=== PATIENT | male | born 1970 | race Caucasian/White ===

== ENCOUNTER 2017-08-25 08:36 | Emergency (ER) | payer BC ==
[2017-08-25] MEDS ORDERED: diphenhydrAMINE 50 MG/ML VIAL ONE (09:23)
[2017-08-25] MEDS ORDERED: Metoclopramide HCl 10 MG/2 ML VIAL ONE (09:23)
[2017-08-25 09:40] LABS: ALT (SGPT) 34 U/L (8-55); AST (SGOT) 22 U/L (5-34); Albumin 4.7 g/dL (3.5-5.0); Alkaline Phosphatase 69 U/L (40-150); Anion Gap 14 mmol/L (10-20); BUN (Urea Nitrogen) 18 mg/dL (8.9-20.6); Bilirubin, Total 0.5 mg/dL (0.2-1.2); Calc. Creatinine Clearance 0 mL/min (70-130); Calcium 9.5 mg/dL (7.8-10.44); Carbon Dioxide 21 mmol/L (22-29); Chloride 108 mmol/L (98-107); Estimated GFR-MDRD 76; Globulin 3.2 g/dL (2.4-3.5); Glucose 129 mg/dL (70-105); Lipase 16 U/L (8-78); Potassium 4.2 mmol/L (3.5-5.1); Protein, Total 7.9 g/dL (6.0-8.3); Sodium 139 mmol/L (136-145)
--- NOTE | 2017-08-25 09:40 | RAD ---
PORTABLE AP CHEST RADIOGRAPH: Date: 08-25-17 History: Chest pain. Comparison: 10-25-16 FINDINGS: The cardiac silhouette and pulmonary vasculature are within normal limits. The lungs remain clear. Th ere has been no interval change when compared to the prior study. IMPRESSION: No acute cardiopulmonary process. POS: [facility]
[2017-08-25 09:42] LABS: CKMB 1.3 ng/mL (0-6.6)
[2017-08-25 09:48] LABS: #Basophils 0.1 thou/uL (0.0-0.2); #Eosinphils 0.1 thou/uL (0.0-0.7); #Monocytes 0.3 thou/uL (0.11-0.59); #Neutrophils 4.7 thou/uL (1.40-6.50); %Basophils 1.7 % (0.0-1.0); %Eosinophils 1.1 % (0.0-10.0); %Lymphocytes 15.8 % (21.0-51.0); %Monocytes 4.2 % (0.0-10.0); %Neutrophils 77.3 % (42.0-75.0); Mean Corpuscular HGB CONC 35.5 g/dL (32.0-36.0); Mean Corpuscular Hemoglobin 29.2 pg (27.0-31.0); Mean Corpuscular Volume 82.2 fl (80.0-94.0); Mean Platelet Volume 8.2 fL (7.4-10.4); Platelet Count 219 thou/uL (130-400); RBC Distribution Width 12.5 % (11.5-14.5); Red Blood Cell (RBC) Count 5.83 mill/uL (4.70-6.10); White Blood Cell (WBC) Count 6.1 thou/uL (4.8-10.8)
== END 2017-08-25 10:15 | disposition home or self-care (01) ==
LOC: SCSER 08:36
DX: R07.2 Precordial pain (principal); R51 Headache; E78.5 Hyperlipidemia, unspecified; I10 Essential (primary) hypertension; Z87.891 Personal history of nicotine dependence; Z79.899 Other long term (current) drug therapy
CPT/HCPCS: 71045; 80053; 82553; 83690; 84484; 85025; 93005; 96365; 96375; J1200; J2765

== ENCOUNTER 2018-01-06 19:22 | Inpatient (IN) | payer BC, SELFPAY ==
[2018-01-06 20:17] LABS: ALT (SGPT) 31 U/L (8-55); AST (SGOT) 23 U/L (5-34); Albumin 4.8 g/dL (3.5-5.0); Alkaline Phosphatase 76 U/L (40-150); Anion Gap 18 mmol/L (10-20); BUN (Urea Nitrogen) 37 mg/dL (8.9-20.6); Bilirubin, Total 1.2 mg/dL (0.2-1.2); CK (CPK) 114 U/L (30-200); Calc. Creatinine Clearance 0 mL/min (70-130); Calcium 9.7 mg/dL (7.8-10.44); Carbon Dioxide 17 mmol/L (22-29); Chloride 104 mmol/L (98-107); Estimated GFR-MDRD 25; Glucose 95 mg/dL (70-105); Potassium 3.9 mmol/L (3.5-5.1); Protein, Total 7.8 g/dL (6.0-8.3); Sodium 135 mmol/L (136-145)
[2018-01-06 20:21] LABS: CKMB 1.1 ng/mL (0-6.6); Troponin I Less than 0.010 ng/mL (< 0.028)
--- NOTE | 2018-01-06 20:27 | RAD ---
CHEST ONE VIEW 01/06/18 HISTORY: Chest pressure and pain. COMPARISON: 08/25/17. FINDINGS: Normal cardiac silhouette. Pulmonary vessels and hilum are normal. Costophrenic angles are clear. No mass. No consolidation. No pneumothorax or osseous abnormalities. IMPRESSION: No acute cardiopulmonary process. POS: [facility]
[2018-01-06 21:04] LABS: Bilirubin Small (Negative); Blood, Urine Negative (Negative); Glucose, Urine (Dipstick) Negative (Negative); Leukocyte Negative (Negative); Nitrite Negative (Negative); Protein, Urine (Dipstick) 30 mg/dL (Neg-Trace); Specific Gravity, Urine 1.025 (1.005-1.030); Urobilinogen 0.2 mg/dL (0.2-1.0); pH, Urine 5.5 (5.0-9.0)
[2018-01-06 21:05] LABS: Clarity Hazy (Clear)
[2018-01-06 21:13] LABS: Bacteria/HPF 1+ HPF (None Seen); Hyaline Casts/LPF 0-3 HYALINE CAST LPF (0-3 Hyaline); RBC/HPF None Seen HPF (0-3); Squamous Epithelial 0-3 HPF (0-3); WBC/HPF None Seen HPF (0-3)
[2018-01-06 22:33] LABS: Osmolality, Urine 385 mOsm/kg (300-900)
[2018-01-06 22:43] LABS: Sodium, Urine 22 mmol/L (Not Available)
[2018-01-06] MEDS ORDERED: Sodium Chloride 0.9% 1,000 ML IV SCH (22:53)
[2018-01-06 22:57] VITALS: BMI 32.5
[2018-01-06 23:40] LABS: Troponin I Less than 0.010 ng/mL (< 0.028)
[2018-01-07] MEDS ORDERED: ALPRAZolam 0.5 MG TAB PO PRN (00:41)
[2018-01-07] MEDS ORDERED: Ondansetron ODT 4 MG TAB PO PRN (00:43)
[2018-01-07] MEDS ORDERED: Acetaminophen 325 MG TAB PO PRN (00:43)
[2018-01-07] MEDS: Sodium Chloride 0.9% 1,000 ML IV SCH ×3 (00:52→21:44)
[2018-01-07 02:14] LABS: #Eosinphils 0.2 thou/uL (0.0-0.7); #Lymphocytes 1.5 thou/uL (1.20-3.40); #Monocytes 0.8 thou/uL (0.11-0.59); #Neutrophils 3.9 thou/uL (1.40-6.50); %Basophils 0.4 % (0.0-1.0); %Eosinophils 2.4 % (0.0-10.0); %Lymphocytes 23.1 % (21.0-51.0); %Monocytes 12.2 % (0.0-10.0); Mean Corpuscular HGB CONC 36.5 g/dL (32.0-36.0); Mean Corpuscular Hemoglobin 31.9 pg (27.0-31.0); Mean Corpuscular Volume 87.2 fL (78.0-98.0); Mean Platelet Volume 8.5 fL (7.4-10.4); Platelet Count 177 thou/uL (130-400); RBC Distribution Width 13.2 % (11.5-14.5); Red Blood Cell (RBC) Count 4.38 mill/uL (4.70-6.10); White Blood Cell (WBC) Count 6.3 thou/uL (4.8-10.8)
[2018-01-07 02:31] LABS: Troponin I Less than 0.010 ng/mL (< 0.028)
[2018-01-07 02:33] LABS: Anion Gap 15 mmol/L (10-20); BUN (Urea Nitrogen) 36 mg/dL (8.9-20.6); BUN/Creatinine Ratio 16.51; Calc. Creatinine Clearance 59 mL/min (70-130); Calcium 8.9 mg/dL (7.8-10.44); Carbon Dioxide 17 mmol/L (22-29); Chloride 106 mmol/L (98-107); Estimated GFR-MDRD 33; Glucose 92 mg/dL (70-105); Phosphorus 4.7 mg/dL (2.3-4.7); Potassium 3.2 mmol/L (3.5-5.1); Sodium 135 mmol/L (136-145)
[2018-01-07] MEDS ORDERED: Nitroglycerin 2% Ointment 1 INCH/1 GM Packet TOP PRN (04:55)
--- NOTE | 2018-01-07 06:25 | HP ---
CHIEF COMPLAINT: Chest pain. HISTORY OF PRESENT ILLNESS: This is a 47-year-old male with past medical history of cardiac catheter ization, hyperlipidemia, hypertension, presenting with chest pain which started since Wednesday, 2017. Per patient, his chest pain started substernal in nature, did not radiate to the back; however , patient stated that the pain is localized across the chest and it was 6/10 on the pain scale. Aisha ent states that during the time when he had chest pain, he was also having some mild shortness of eunice ath. Patient was also having increased diaphoresis. Patient states that he has history of anxiety, therefore, he thought it was probably due to anxiety; however, the chest pain has been ongoing for th e past 2 days and patient taking his anxiety medication is not helping. The patient states that work ing or exertion makes the chest pain worse. Of note, patient states that the past couple of weeks, h e had diarrhea and abdominal pain, vomiting. Patient stated that he was very dehydrated during that time and he is wondering if that could also be a contributing factor to him having these symptoms of chest pain. At this point, patient denies hemoptysis, recent travel history, any sick contact. The patient denies fever, nausea, vomiting, diarrhea, abdominal pain, constipation, or hematuria. REVIEW OF SYSTEMS: Positive for chest pain and shortness of breath, otherwise as documented in the H PI. All other systems are reviewed and are negative. PAST MEDICAL HISTORY: Hyperlipidemia; hypertension; coronary artery disease, status post cardiac cat heterization. FAMILY HISTORY: Reviewed and noncontributory. PAST SURGICAL HISTORY: Tonsillectomy, colonoscopy, cardiac stents. PSYCHIATRIC HISTORY: Anxiety. SOCIAL HISTORY: Patient is a former tobacco smoker. The patient states that he quit about 8 years a go. The patient denies any alcohol use or illicit drug abuse. ALLERGIES: IODINE. CURRENT MEDICATIONS: The patient is on losartan 100 mg, metoprolol tartrate 25 mg. PHYSICAL EXAMINATION: VITAL SIGNS: Blood pressure is 101/69, pulse of 71, respiratory rate of 20, temperature of 98.3, oxy gen saturation of 98 on room air. GENERAL: The patient is alert, oriented x3, not in acute distress. Patient is able to speak in full sentences. HEENT: Normocephalic, atraumatic. Pupils are equal, round, and reactive to light. Extraocular move ments are intact. No scleral icterus. NECK: Trachea is midline. No JVD. Neck is supple. LUNGS: Clear to auscultation bilaterally. No wheezing, no rales, no rhonchi appreciated. No chest wall tenderness. CARDIOVASCULAR: Positive S1, S2. Regular rate and rhythm. No murmurs, no gallops, no rubs apprecia kobe. ABDOMEN: Obese. Abdomen is soft, nontender, nondistended. Positive bowel sounds in all quadrants. No rigidity. No peritoneal signs. EXTREMITIES: 5/5 upper extremity strength and 5/5 lower extremity strength. No edema noted in the l ower extremities. Good pulses bilaterally at the upper and lower extremities bilaterally. NEUROLOGIC: Cranial nerves II through XII grossly intact. No neurological deficits noted. SKIN: Warm, dry, and intact. EK-lead EKG, sinus at 67. IMAGING: Chest x-ray showed no cardiopulmonary process. ED COURSE: The patient received aspirin and normal saline. LABORATORY DATA: WBC 6.3, hemoglobin is 14.0, hematocrit 38.2, platelet count is 177,000. Sodium is 135, potassium is 3.9, chloride is 104, carbon dioxide of 17, anion gap of 18, BUN is 37, creatinine is 2.78, GFR is 25, AST is 23, ALT is 31. Creatine kinase is 114. Troponin is less than 0.010 x2. Urinalysis is negative for leukoesterase and nitrites. ASSESSMENT AND PLAN: This is a 47-year-old male with past medical history of coronary artery disease , status post stents, being admitted for: 1. Chest pain, rule out acute coronary syndrome. At this point, patient's troponin has been negativ e x2. Nonspecific EKG changes echo. We will follow up on echo results before the nitropatch p .r.n. for pain, aspirin. 2. Acute kidney injury likely secondary to dehydration. Patient's elevated creatinine is probably p rerenal in etiology. At this point, we are going to give IV hydration. We have consulted Nephrology . We will follow up with Nephrology regarding further recommendations. 3. History of coronary artery disease. We will continue aspirin and we will start patient on his ho ma medications. 4. History of anxiety. We will continue the patient on his current medications. 5. Hyperlipidemia. We will start patient on his home medications and continue current management. 6. Hypertension. We will continue patient on his home medications. 7. Deep venous thrombosis and gastrointestinal prophylaxis.
[2018-01-07] MEDS: Aspirin 81 mg Enteric Coated Tablet PO SCH (08:51)
[2018-01-07] MEDS: Heparin 5,000 UNITS/ML VIAL SC SCH ×3 (08:51→20:53)
[2018-01-07] MEDS ORDERED: Famotidine 20 MG TAB PO SCH (09:00)
--- NOTE | 2018-01-07 12:35 | RAD ---
RADIOGRAPH ABDOMEN TWO VIEWS: Date: 01-07-18 Time: 12:04 p.m. History: 47-year-old male with generalized abdominal pain. FINDINGS: The bowel gas pattern is nonobstructive, with no evidence of air filled dilated small bowel loops. No differential air fluid levels. No free fluid. No gastric distention. IMPRESSION: Nonobstructive bowel gas pattern. POS: [facility]
[2018-01-07] MEDS ORDERED: ADENOSINE 60 MG/20 ML VIAL ONE (15:57)
--- NOTE | 2018-01-07 16:46 | NM ---
CARDIAC SPECT: CLINICAL HISTORY: 47-year-old male with chest pain, coronary artery disease, hypertension, and dyslipidemia. TECHNIQUE: A myocardial perfusion scan was performed using the single isotope one day protocol with technetium-9 9m sestamibi. 9 mCi were injected intravenously for the rest exam followed by 27 mCi for the stress e xam. Pharmacologic stress with Adenosine was monitored and interpreted by Dr. Horowitz. FINDINGS: Homogeneous tracer distribution is seen in the myocardial segments on stress and rest images without fixed or reversible defects. GATED SPECT LVEF: 62%. WALL MOTION EXAM: Normal. IMPRESSION: Normal myocardial perfusion scan. POS: [facility]
[2018-01-07] MEDS: Potassium Chloride 20 MEQ TAB PO SCH ×2 (16:59→20:53)
[2018-01-07] MEDS ORDERED: hydrALAZINE 20 MG/ML VIAL SLOW IVP PRN (18:36)
--- NOTE | 2018-01-07 18:38 | PDOC.PN ---
- Subjective Encounter Start Date: 01/07/18 Encounter Start Time: 08:40 Pt seen for followup re: chest pain. Reports chest pain is better. c/o lower abdo discomfort. No nausea or vomiting. Last BM was yesterday. - Objective Resuscitation Status: Resuscitation Status FULL:Full Resuscitation MAR Reviewed: Yes Vital Signs & Weight: Vital Signs (12 hours) Temp Pulse Resp BP BP Pulse Ox 01/07/18 16:00 98.6 F 61 16 127/72 99 01/07/18 11:35 98.4 F 61 16 122/69 98 01/07/18 08:41 97.7 F 71 18 106/57 L 96 Weight Weight 220 lb 14.4 oz I&O: 01/06/18 01/07/18 01/08/18 06:59 06:59 06:59 Intake Total 1281 Output Total 1200 Balance 81 Result Diagrams: 01/07/18 02:01 01/07/18 02:01 EKG Reviewed by me: Yes (Tele: NSR) Phys Exam - Physical Examination Constitutional: NAD HEENT: moist MMs, sclera anicteric, oral pharynx no lesions, 2+ tonsils Neck: no nodes, no JVD, supple, full ROM Respiratory: no wheezing, no rales, no rhonchi, clear to auscultation bilateral Cardiovascular: RRR, no rub S1, S2 Gastrointestinal: soft, non-tender, no distention, positive bowel sounds Neurological: moves all 4 limbs Psychiatric: normal affect, A&O x 3 Dx/Plan (1) Chest pain Code(s): R07.9 - CHEST PAIN, UNSPECIFIED Status: Acute Comment: pt to have stress test (2) LILLIAM (acute kidney injury) Code(s): N17.9 - ACUTE KIDNEY FAILURE, UNSPECIFIED Status: Acute Comment: continue IV fluids, recheck creatinine. Hold losartan (3) Abdominal pain Code(s): R10.9 - UNSPECIFIED ABDOMINAL PAIN Status: Acute Comment: check abdo x-rays. Abdo exam benign (4) HTN (hypertension) Code(s): I10 - ESSENTIAL (PRIMARY) HYPERTENSION Status: Chronic Comment: controlled. Hold losartan due to renal insufficiency - Plan * . Review of Systems - Review of Systems Constitutional: negative: fever, chills, sweats, weakness, malaise Respiratory: negative: Cough, Shortness of Breath, SOB with Excertion, Pleuritic Pain, Wheezing Cardiovascular: chest pain. negative: palpitations, orthopnea, paroxysmal nocturnal dyspnea, edema, light headedness Gastrointestinal: Abdominal Pain. negative: Nausea, Vomiting, Diarrhea, Constipation, Melena, Hematochezia Genitourinary: negative: Dysuria, Frequency, Incontinence, Hematuria, Retention Skin: negative: Rash, Lesions, Sean, Bruising - Medications/Allergies Allergies/Adverse Reactions: Allergies Allergy/AdvReac Type Severity Reaction Status Date / Time iodine Allergy Verified 01/06/18 23:27 Medications: Current Medications Acetaminophen (Tylenol) 650 mg PO Q4H PRN PRN Reason: Headache/Fever/Mild Pain (1-3) Last Admin: 01/07/18 05:55 Dose: 650 mg Alprazolam (Xanax) 0.5 mg PO DAILY PRN PRN Reason: Anxiety Aspirin (Ecotrin) 81 mg PO DAILY [facility] Last Admin: 01/07/18 08:51 Dose: Not Given Heparin Sodium (Porcine) (Heparin) 5,000 units SC BID [facility] Last Admin: 01/07/18 09:27 Dose: 5,000 units Hydralazine HCl (Apresoline) 10 mg SLOW IVP Q6H PRN PRN Reason: SBP Greater Than 170 Sodium Chloride (Normal Saline 0.9%) 1,000 mls @ 100 mls/hr IV .Q10H [facility] Last Admin: 01/07/18 08:51 Dose: 1,000 mls Metoprolol Succinate (Toprol Xl) 25 mg PO DAILY [facility] Last Admin: 01/07/18 08:50 Dose: Not Given Nitroglycerin (Nitro-Bid 2% Ointment) 0.5 inch TOP Q8H PRN PRN Reason: Chest Pain Last Admin: 01/07/18 05:54 Dose: 0.5 inch Ondansetron HCl (Zofran Odt) 4 mg PO Q6H PRN PRN Reason: Nausea/Vomiting Pantoprazole Sodium (Protonix) 40 mg PO DAILY [facility] Last Admin: 01/07/18 08:50 Dose: Not Given Potassium Chloride (K-Dur) 40 meq PO Q4H [facility] Stop: 01/07/18 21:01 Last Admin: 01/07/18 16:59 Dose: 40 meq Sodium Chloride (Flush - Normal Saline) 10 ml IVF Q12HR [facility] Last Admin: 01/07/18 08:48 Dose: Not Given Sodium Chloride (Flush - Normal Saline) 10 ml IVF PRN PRN PRN Reason: Saline Flush
[2018-01-07] MEDS ORDERED: Atorvastatin Calcium 40 MG TAB PO SCH (21:00)
--- NOTE | 2018-01-07 23:39 | CON ---
DATE OF CONSULTATION: 01/07/2018 CONSULTING PHYSICIAN: Jovany Landin DO REASON FOR CONSULTATION: Acute kidney injury. REASON FOR ADMISSION: Chest pain. HISTORY OF PRESENT ILLNESS: This is a 47-year-old male with a history of hyperlipidemia, hypertensio n, coronary artery disease, who came to the hospital with chest pain and was found to have elevated c reatinine of 2.7 and was started on hydration and got better to 2.1. The patient reported that he wa s not feeling well last week. For a few days, he had diarrhea and then he was sweating a lot at his work, was not able to hydrate very well, was feeling bad and feeling weak, and he also had chest rajesh n. He is being evaluated for coronary artery disease. PAST MEDICAL HISTORY: Positive for hyperlipidemia, hypertension, coronary artery disease. PAST SURGICAL HISTORY: Tonsillectomy, colonoscopy, cardiac stents, and cardiac catheterization. HOME MEDICATIONS: , metoprolol, losartan, alprazolam. ALLERGIES: IODINE. SOCIAL HISTORY: Former smoker. No alcohol or drug abuse. FAMILY HISTORY: No history of kidney disease. REVIEW OF SYSTEMS: The following complete review of systems was negative, unless otherwise mentioned in the HPI or below: Constitutional: Weight loss or gain, ability to conduct usual activities. Sk in: Rash, itching. Eyes: Double vision, pain. ENT/Mouth: Nose bleeding, neck stiffness, pain, te nderness. Cardiovascular: Palpitations, dyspnea on exertion, orthopnea. Respiratory: Shortness of breath, wheezing, cough, hemoptysis, fever, or night sweats. Gastrointestinal: Poor appetite, abdo nhan pain, heartburn, nausea, vomiting, constipation, or diarrhea. Genitourinary: Urgency, frequen cy, dysuria, nocturia. Musculoskeletal: Pain, swelling. Neurologic/Psychiatric: Anxiety, depressi on. Allergy/Immunologic: Skin rash, bleeding tendency. PHYSICAL EXAMINATION: GENERAL: This is a well-built male in no apparent distress. VITAL SIGNS: Temperature 98.4, pulse 61, respiratory rate 16, blood pressure 122/69. LABORATORY DATA: Potassium is 3.2, BUN is 36, creatinine is 2.1 from 2.7. ASSESSMENT AND PLAN: 1. Acute kidney injury most likely from volume depletion. Creatinine is better. Continue supportiv e care. 2. Hypokalemia. Replace. 3. Hyponatremia. 4. Metabolic acidosis. Continue IV fluids. 5. Edema, controlled. 6. Mild proteinuria. Plan is to continue on IV fluids as tolerated. Avoid nephrotoxins. Thank you for the consult.
[2018-01-08] MEDS: Sodium Chloride 0.9% 1,000 ML IV SCH ×2 (08:10→17:47)
[2018-01-08 08:57] LABS: #Eosinphils 0.1 thou/uL (0.0-0.7); #Lymphocytes 1.1 thou/uL (1.20-3.40); #Monocytes 0.5 thou/uL (0.11-0.59); #Neutrophils 3.5 thou/uL (1.40-6.50); %Basophils 0.2 % (0.0-1.0); %Eosinophils 2.3 % (0.0-10.0); %Lymphocytes 20.5 % (21.0-51.0); %Monocytes 10.4 % (0.0-10.0); %Neutrophils 66.6 % (42.0-75.0); Hemoglobin 12.9 g/dL (14.0-18.0); Mean Corpuscular HGB CONC 34.4 g/dL (32.0-36.0); Mean Corpuscular Hemoglobin 29.9 pg (27.0-31.0); Platelet Count 195 thou/uL (130-400); RBC Distribution Width 12.9 % (11.5-14.5); White Blood Cell (WBC) Count 5.3 thou/uL (4.8-10.8)
[2018-01-08] MEDS: Heparin 5,000 UNITS/ML VIAL SC SCH ×2 (09:06→20:25)
[2018-01-08] MEDS: Aspirin 81 mg Enteric Coated Tablet PO SCH (09:06)
[2018-01-08 09:19] LABS: Anion Gap 11 mmol/L (10-20); BUN (Urea Nitrogen) 15 mg/dL (8.9-20.6); Calc. Creatinine Clearance 136 mL/min (70-130); Calcium 8.7 mg/dL (7.8-10.44); Carbon Dioxide 20 mmol/L (22-29); Chloride 112 mmol/L (98-107); Estimated GFR-MDRD 85; Glucose 107 mg/dL (70-105); Sodium 139 mmol/L (136-145)
--- NOTE | 2018-01-08 10:41 | PRG ---
DATE OF SERVICE: 01/08/2018. SUBJECTIVE: Patient was seen and examined at bedside and overnight events noted. Patient denies any shortness of breath or chest pain or palpitation. No history of nausea or vomiting or diarrhea or f ever or chills or cramps. OBJECTIVE: GENERAL: This is a well-built male in no apparent distress. VITAL SIGNS: Temperature 98.2, pulse 72, respiratory rate 15, blood pressure 121/69. HEENT: Atraumatic, normocephalic. Oral mucosa is moist. NECK: Supple. CARDIOVASCULAR: S1, S2 heard. Rate and rhythm regular. RESPIRATORY: Clear to auscultation. GASTROINTESTINAL: Abdomen is soft. MUSCULOSKELETAL: No tenderness, no edema. DERMATOLOGIC: No skin rash. NEUROLOGIC: Alert and awake and oriented x3. No focal neurologic deficits. Moving all the extremit ies. PSYCHIATRIC: Mood and affect normal. LABORATORY DATA: Potassium is 4.0, BUN is 15, creatinine 0.9. ASSESSMENT AND PLAN: 1. Acute kidney injury most likely volume depletion. Creatinine is much better. 2. Edema, controlled. 3. Hypertension, stable. 4. Mild proteinuria. 5. Metabolic acidosis, stable. 6. Creatinine is much better. I will sign off. Please call back with any questions.
--- NOTE | 2018-01-08 15:13 | PDOC.PN ---
- Subjective Encounter Start Date: 01/08/18 Encounter Start Time: 10:00 Pt seen for followup re: abdominal pain. Reports ongoing lower abdo pain, sharp , bilateral, nonradiating. No constipation, nausea or vomiting. - Objective Resuscitation Status: Resuscitation Status FULL:Full Resuscitation MAR Reviewed: Yes Vital Signs & Weight: Vital Signs (12 hours) Temp Pulse Resp BP Pulse Ox 01/08/18 11:04 98.0 F 65 18 128/72 98 01/08/18 08:00 95 01/08/18 07:26 98.2 F 72 15 121/69 95 01/08/18 04:05 98 01/08/18 03:14 98.4 F 88 18 127/62 98 Weight Weight 220 lb 14.4 oz I&O: 01/07/18 01/08/18 01/09/18 06:59 06:59 06:59 Intake Total 1281 Output Total 1200 Balance 81 Result Diagrams: 01/08/18 08:42 01/08/18 08:42 EKG Reviewed by me: Yes (Tele: NSR) Phys Exam - Physical Examination Constitutional: NAD HEENT: moist MMs, sclera anicteric, oral pharynx no lesions, 2+ tonsils Neck: no nodes, no JVD, supple, full ROM Respiratory: no wheezing, no rales, no rhonchi, clear to auscultation bilateral Cardiovascular: RRR, no rub S1, S2 Gastrointestinal: soft, no distention, positive bowel sounds mild vivian LLQ tenderness, no guarding or rigidity Neurological: moves all 4 limbs Psychiatric: normal affect, A&O x 3 Dx/Plan (1) Abdominal pain Code(s): R10.9 - UNSPECIFIED ABDOMINAL PAIN Status: Acute Comment: Check CT abdo/pelvis (pt will need allergy prep) (2) HTN (hypertension) Code(s): I10 - ESSENTIAL (PRIMARY) HYPERTENSION Status: Chronic Comment: controlled. (3) Chest pain Code(s): R07.9 - CHEST PAIN, UNSPECIFIED Status: Resolved Comment: normal stress test and d-dimer (4) LILLIAM (acute kidney injury) Code(s): N17.9 - ACUTE KIDNEY FAILURE, UNSPECIFIED Status: Resolved Comment : resume losartan - Plan * . Review of Systems - Review of Systems Constitutional: negative: fever, chills, sweats, weakness, malaise Cardiovascular: negative: chest pain, palpitations, orthopnea, paroxysmal nocturnal dyspnea, edema, light headedness Gastrointestinal: Abdominal Pain. negative: Nausea, Vomiting, Diarrhea, Constipation, Melena, Hematochezia Genitourinary: negative: Dysuria, Frequency, Incontinence, Hematuria, Retention Skin: negative: Rash, Lesions, Sean, Bruising Neurological: negative: Weakness, Numbness, Incoordination, Change in Speech, Confusion, Seizures - Medications/Allergies Allergies/Adverse Reactions: Allergies Allergy/AdvReac Type Severity Reaction Status Date / Time iodine Allergy Verified 01/06/18 23:27 Medications: Current Medications Acetaminophen (Tylenol) 650 mg PO Q4H PRN PRN Reason: Headache/Fever/Mild Pain (1-3) Last Admin: 01/07/18 05:55 Dose: 650 mg Alprazolam (Xanax) 0.5 mg PO DAILY PRN PRN Reason: Anxiety Last Admin: 01/07/18 21:45 Dose: 0.5 mg Aspirin (Ecotrin) 81 mg PO DAILY [facility] Last Admin: 01/08/18 09:06 Dose: 81 mg Diphenhydramine HCl (Benadryl) 50 mg PO 0800 [facility] Stop: 01/09/18 10:00 Heparin Sodium (Porcine) (Heparin) 5,000 units SC BID [facility] Last Admin: 01/08/18 09:06 Dose: 5,000 units Hydralazine HCl (Apresoline) 10 mg SLOW IVP Q6H PRN PRN Reason: SBP Greater Than 170 Sodium Chloride (Normal Saline 0.9%) 1,000 mls @ 100 mls/hr IV .Q10H [facility] Last Admin: 01/08/18 08:10 Dose: 1,000 mls Losartan Potassium (Cozaar) 100 mg PO DAILY [facility] Metoprolol Succinate (Toprol Xl) 25 mg PO DAILY [facility] Last Admin: 01/08/18 09:06 Dose: 25 mg Nitroglycerin (Nitro-Bid 2% Ointment) 0.5 inch TOP Q8H PRN PRN Reason: Chest Pain Last Admin: 01/07/18 05:54 Dose: 0.5 inch Ondansetron HCl (Zofran Odt) 4 mg PO Q6H PRN PRN Reason: Nausea/Vomiting Pantoprazole Sodium (Protonix) 40 mg PO DAILY [facility] Last Admin: 01/08/18 09:06 Dose: 40 mg Prednisone (Prednisone) 50 mg PO 1999 [facility] Stop: 01/08/18 22:00 Prednisone (Prednisone) 50 mg PO 020 [facility] Stop: 01/09/18 04:00 Prednisone (Prednisone) 50 mg PO 0800 [facility] Stop: 01/09/18 10:00 Sodium Chloride (Flush - Normal Saline) 10 ml IVF Q12HR [facility] Last Admin: 01/08/18 09:06 Dose: 10 ml Sodium Chloride (Flush - Normal Saline) 10 ml IVF PRN PRN PRN Reason: Saline Flush
[2018-01-08] MEDS ORDERED: predniSONE 50 MG TAB PO SCH (20:00)
[2018-01-09] MEDS ORDERED: predniSONE 50 MG TAB PO SCH ×2 (02:00→08:00)
[2018-01-09 05:18] LABS: #Lymphocytes 0.6 thou/uL (1.20-3.40); #Monocytes 0.1 thou/uL (0.11-0.59); #Neutrophils 3.5 thou/uL (1.40-6.50); %Basophils 0.6 % (0.0-1.0); %Lymphocytes 14.2 % (21.0-51.0); %Neutrophils 81.2 % (42.0-75.0); Hemoglobin 13.4 g/dL (14.0-18.0); Mean Corpuscular HGB CONC 34.2 g/dL (32.0-36.0); Mean Corpuscular Hemoglobin 29.2 pg (27.0-31.0); Mean Corpuscular Volume 85.5 fL (78.0-98.0); Mean Platelet Volume 8.1 fL (7.4-10.4); Platelet Count 207 thou/uL (130-400); RBC Distribution Width 12.6 % (11.5-14.5); Red Blood Cell (RBC) Count 4.58 mill/uL (4.70-6.10); White Blood Cell (WBC) Count 4.3 thou/uL (4.8-10.8)
[2018-01-09 05:32] LABS: Anion Gap 13 mmol/L (10-20); BUN (Urea Nitrogen) 13 mg/dL (8.9-20.6); Calc. Creatinine Clearance 128 mL/min (70-130); Calcium 9.1 mg/dL (7.8-10.44); Carbon Dioxide 20 mmol/L (22-29); Chloride 109 mmol/L (98-107); Estimated GFR-MDRD 78; Glucose 135 mg/dL (70-105); Potassium 4.6 mmol/L (3.5-5.1); Sodium 137 mmol/L (136-145)
[2018-01-09] MEDS ORDERED: diphenhydrAMINE 50 MG CAP PO SCH (08:00)
[2018-01-09] MEDS: Heparin 5,000 UNITS/ML VIAL SC SCH (08:28)
[2018-01-09] MEDS ORDERED: Losartan 25 MG TAB PO SCH (09:00)
--- NOTE | 2018-01-09 09:14 | CT ---
CT ABDOMEN AND PELVIS WITH IV AND ORAL CONTRAST: HISTORY: Abdominal pain. COMPARISON: 04/29/2015. FINDINGS: Lung bases are clear. The spleen measures up to 15.6 cm. The liver, kidneys, adrenal glands, and pa ncreas are unremarkable. No enlarged lymph nodes or free fluid. Scattered diverticula arise from the colon. At the left lower colon, subtle fat stranding surrounds a thickened colon wall where diverticula are present. No free air or free fluid. IMPRESSION: 1. Lower left colon noncomplicated diverticulitis. 2. Moderate splenomegaly. POS: [facility]
[2018-01-09] MEDS: Aspirin 81 mg Enteric Coated Tablet PO SCH (09:59)
[2018-01-09] MEDS ORDERED: metroNIDAZOLE 500 MG in Premix Bag 1 BAG IVPB SCH (10:00)
--- NOTE | 2018-01-09 14:29 | PRG ---
DATE OF SERVICE: 01/09/2018. SUBJECTIVE: Patient was seen and examined at bedside and overnight events noted. Patient denies any shortness of breath or chest pain or palpitation. No history of nausea or vomiting or diarrhea or f ever or chills or cramps. OBJECTIVE: GENERAL: This is a well-built male in no apparent distress. VITAL SIGNS: Temperature 97.8, pulse 65, respiratory rate 18, blood pressure 132/76. HEENT: Atraumatic, normocephalic. Oral mucosa is moist. NECK: Supple. CARDIOVASCULAR: S1, S2 heard. Rate and rhythm regular. RESPIRATORY: Clear to auscultation. GASTROINTESTINAL: Abdomen is soft. MUSCULOSKELETAL: No tenderness, no edema. DERMATOLOGIC: No skin rash. NEUROLOGIC: Alert and awake and oriented x3. No focal neurologic deficits. Moving all the extremit ies. PSYCHIATRIC: Mood and affect normal. LABORATORY DATA: Potassium is 4.6, BUN is 30, creatinine is . ASSESSMENT AND PLAN: 1. Acute kidney injury, much better with hydration. 2. Edema, controlled. 3. Hypertension, stable. 4. Metabolic acidosis. Labs are stable. I will sign off. Please call back with any questions.
[2018-01-09 17:44] VITALS: BP 128/87; TEMP 97.9
--- NOTE | 2018-01-09 19:42 | DIS ---
DATE OF ADMISSION: 01/06/2018 DATE OF DISCHARGE: 01/09/2018 PRIMARY CARE PHYSICIAN: Arthur Hancock MD DISCHARGE DIAGNOSES: 1. Acute diverticulitis. 2. Chest pain, likely musculoskeletal. 3. Acute renal insufficiency. CONSULTATIONS DURING THIS HOSPITALIZATION: Nephrology, Dr. Amadeo Amato. CONDITION OF PATIENT ON THE DAY OF DISCHARGE: Stable. I assessed Mr. Watts on the day of discharge. He denies any chest pain or shortness of breath. Abdominal pain is better. Vital signs are stable . S1 and S2 are heard, regular. Lungs are clear to auscultation bilaterally. DISCHARGE MEDICATIONS: Losartan 100 mg daily, Toprol-XL 25 mg daily, ciprofloxacin 500 mg 2 times a day for 1 week, metronidazole 500 mg 3 times a day for 1 week, Xanax 0.5 mg daily as needed. HOSPITAL COURSE: Mr. Watts is a pleasant 47-year-old gentleman who was admitted to [facility] on 01/06/2018 for chest pain and acute renal insufficiency. Please refer to history and physical note by Dr. Landin dated 01/07/2018 for further details. He was seen by Nephrology Ser vice and received intravenous fluids. Losartan was held until kidney function improved. He had a nu clear stress test, which was normal, with left ventricular ejection fraction of 62%. He complained o f abdominal pain. Abdominal x-rays on 01/07/2018 did not show any acute findings. He went on to hav e CT scan of the abdomen and pelvis after preparation for iodine allergy. It showed lower left colon noncomplicated diverticulitis and moderate splenomegaly. He is being started on antibiotics prior t o discharge. He has been advised to return to work as tolerated in approximately 1 week's time. He has also been advised to follow up with his primary care provider in 3-5 days. On the day of discharge, he has sodium 137, potassium 4.6, creatinine 1.02, white count 4300, hemoglo bin 13.4, and platelet count 207,000. He had a BNP of less than 10 during this hospitalization. Many thanks for allowing me to participate in your patient's care. Please feel free to contact me wi th any questions or concerns. DISCHARGE DESTINATION: Home. TOTAL AMOUNT OF TIME SPENT COORDINATING THIS DISCHARGE: 32 minutes.
== END 2018-01-09 16:59 | disposition home or self-care (01) | DRG 392 ==
LOC: SCSER 19:22 → 2NO 22:48
PROVIDERS: ADMIT Internal Medicine; ATTEND Internal Medicine
PROC: B24BZZZ Ultrasonography of Heart with Aorta (ICD-10-PCS; principal; 2018-01-08)
DX: K57.92 Diverticulitis of intestine, part unspecified, without perforation or abscess without bleeding (principal); N17.9 Acute kidney failure, unspecified; E87.2 Acidosis; E87.1 Hypo-osmolality and hyponatremia; I25.10 Atherosclerotic heart disease of native coronary artery without angina pectoris; E78.5 Hyperlipidemia, unspecified; I10 Essential (primary) hypertension; F41.9 Anxiety disorder, unspecified; Z87.891 Personal history of nicotine dependence; E86.0 Dehydration; R80.9 Proteinuria, unspecified; E87.6 Hypokalemia
CPT/HCPCS: 36415; 71045; 74019; 74177; 78452; 80048; 80053; 80069; 81003; 81015; 82553; 82570; 83880; 83935; 84300; 84484; 85025; 85379; 90471; 90686; 93005; 93017; 93306; A4216; A9500; G0008; J0153; J0360; J0744; J1644

== ENCOUNTER 2018-08-16 13:01 | Emergency (ER) | payer BC ==
[2018-08-16] MEDS ORDERED: Aspirin Chewable 81 MG TAB ONE (13:46)
--- NOTE | 2018-08-16 14:11 | RAD ---
TWO VIEWS CHEST: Comparison: 07-30-07 History: Shortness of breath, chest pain. FINDINGS: Two views of the chest show normal sized cardiomediastinal silhouette. There is no evidence of consol idation, mass, or pleural effusion. The bones are unremarkable. IMPRESSION: No evidence of acute cardiopulmonary disease. POS: [facility]
[2018-08-16 14:14] LABS: #Basophils 0.1 thou/uL (0.0-0.2); #Eosinphils 0.1 thou/uL (0.0-0.7); #Lymphocytes 0.9 thou/uL (1.20-3.40); #Monocytes 0.3 thou/uL (0.11-0.59); #Neutrophils 5.1 thou/uL (1.40-6.50); %Basophils 1.9 % (0.0-1.0); %Eosinophils 1.1 % (0.0-10.0); %Lymphocytes 14.6 % (21.0-51.0); %Monocytes 3.9 % (0.0-10.0); %Neutrophils 78.5 % (42.0-75.0); Mean Corpuscular HGB CONC 34.2 g/dL (32.0-36.0); Mean Corpuscular Hemoglobin 29.3 pg (27.0-31.0); Mean Corpuscular Volume 85.8 fL (78.0-98.0); Mean Platelet Volume 8.3 fL (7.4-10.4); Platelet Count 213 thou/uL (130-400); RBC Distribution Width 13.3 % (11.5-14.5); Red Blood Cell (RBC) Count 5.12 mill/uL (4.70-6.10); White Blood Cell (WBC) Count 6.4 thou/uL (4.8-10.8)
[2018-08-16 14:47] LABS: ALT (SGPT) 29 U/L (8-55); AST (SGOT) 21 U/L (5-34); Albumin 4.2 g/dL (3.5-5.0); Alkaline Phosphatase 56 U/L (40-150); Anion Gap 14 mmol/L (10-20); BUN (Urea Nitrogen) 16 mg/dL (8.9-20.6); Bilirubin, Total 0.5 mg/dL (0.2-1.2); Calc. Creatinine Clearance 0 mL/min (70-130); Calcium 8.9 mg/dL (7.8-10.44); Carbon Dioxide 22 mmol/L (22-29); Chloride 105 mmol/L (98-107); Estimated GFR-MDRD 88; Globulin 2.5 g/dL (2.4-3.5); Glucose 102 mg/dL (70-105); Lipase 14 U/L (8-78); Protein, Total 6.7 g/dL (6.0-8.3); Sodium 137 mmol/L (136-145)
[2018-08-16 17:17] LABS: Troponin I Less than 0.010 ng/mL (< 0.028)
== END 2018-08-16 17:59 | disposition home or self-care (01) ==
LOC: SCSER 13:01
DX: F41.0 Panic disorder [episodic paroxysmal anxiety] (principal); E78.5 Hyperlipidemia, unspecified; I10 Essential (primary) hypertension; F41.9 Anxiety disorder, unspecified; I25.10 Atherosclerotic heart disease of native coronary artery without angina pectoris; Z79.899 Other long term (current) drug therapy
CPT/HCPCS: 36415; 71046; 80053; 83690; 83880; 84484; 85025; 93005

== ENCOUNTER 2018-11-15 13:33 | Emergency (ER) | payer BC ==
[2018-11-15] MEDS ORDERED: Nitroglycerin 2% Ointment 1 INCH/1 GM Packet ONE (14:18)
[2018-11-15] MEDS ORDERED: Aspirin Chewable 81 MG TAB ONE (14:19)
[2018-11-15 14:23] LABS: #Basophils 0.1 thou/uL (0.0-0.2); #Eosinphils 0.1 thou/uL (0.0-0.7); #Lymphocytes 1.3 thou/uL (1.20-3.40); #Monocytes 0.5 thou/uL (0.11-0.59); #Neutrophils 5.8 thou/uL (1.40-6.50); %Basophils 1.4 % (0.0-1.0); %Eosinophils 1.4 % (0.0-10.0); %Lymphocytes 16.3 % (21.0-51.0); %Monocytes 6.2 % (0.0-10.0); %Neutrophils 74.7 % (42.0-75.0); Hemoglobin 15.6 g/dL (14.0-18.0); Mean Corpuscular HGB CONC 34.7 g/dL (32.0-36.0); Mean Corpuscular Hemoglobin 29.6 pg (27.0-31.0); Mean Corpuscular Volume 85.2 fL (78.0-98.0); Mean Platelet Volume 8.5 fL (7.4-10.4); Platelet Count 268 thou/uL (130-400); Red Blood Cell (RBC) Count 5.28 mill/uL (4.70-6.10); White Blood Cell (WBC) Count 7.8 thou/uL (4.8-10.8)
[2018-11-15 14:38] LABS: ALT (SGPT) 36 U/L (8-55); AST (SGOT) 26 U/L (5-34); Albumin 4.6 g/dL (3.5-5.0); Alkaline Phosphatase 72 U/L (40-150); Anion Gap 17 mmol/L (10-20); BUN (Urea Nitrogen) 27 mg/dL (8.9-20.6); Bilirubin, Total 0.8 mg/dL (0.2-1.2); Calc. Creatinine Clearance 0 mL/min (70-130); Calcium 9.7 mg/dL (7.8-10.44); Carbon Dioxide 23 mmol/L (22-29); Chloride 101 mmol/L (98-107); Estimated GFR-MDRD 44; Glucose 107 mg/dL (70-105); Lipase 15 U/L (8-78); Potassium 3.5 mmol/L (3.5-5.1); Protein, Total 7.6 g/dL (6.0-8.3); Sodium 137 mmol/L (136-145)
--- NOTE | 2018-11-15 14:39 | RAD ---
TWO VIEW CHEST: 11/15/18 HISTORY: Chest pain. Lung loo are clear. Heart and mediastinum unremarkable. Vasculature normal. Osseous structures unr emarkable. IMPRESSION: Unremarkable chest. POS: [facility]
[2018-11-15 17:29] LABS: Troponin I 0.013 ng/mL (< 0.028)
== END 2018-11-15 17:52 | disposition home or self-care (01) ==
LOC: SCSER 13:33
DX: R07.89 Other chest pain (principal); I25.10 Atherosclerotic heart disease of native coronary artery without angina pectoris; E78.5 Hyperlipidemia, unspecified; E78.00 Pure hypercholesterolemia, unspecified; I10 Essential (primary) hypertension; F41.9 Anxiety disorder, unspecified; Z87.891 Personal history of nicotine dependence; Z79.899 Other long term (current) drug therapy
CPT/HCPCS: 36415; 71046; 83690; 83880; 84484; 85025; 93005

== ENCOUNTER 2021-11-17 18:00 | Outpatient (CLI) | payer OTHER | END 2021-11-17 18:01 | disposition home or self-care (01) | LOC: SLEEPLAB 18:00 | PROVIDERS: ATTEND Family Medicine | DX: G47.33 Obstructive sleep apnea (adult) (pediatric) (principal); R53.83 Other fatigue; R51.9 Headache, unspecified; F41.9 Anxiety disorder, unspecified; R06.83 Snoring; G47.00 Insomnia, unspecified; E66.9 Obesity, unspecified; Z68.37 Body mass index [BMI] 37.0-37.9, adult | CPT/HCPCS: 95800 ==

== ENCOUNTER 2022-03-10 06:48 | Day surgery (SDC) | payer OTHER ==
[2022-03-09 15:01] VITALS: BMI 36.9
[2022-03-10] MEDS ORDERED: fentaNYL PF 100 MCG/2 ML SYRINGE ONE (08:10)
[2022-03-10] MEDS ORDERED: Phenylephrine 10 MG/ML VIAL ONE (09:02)
[2022-03-10] MEDS ORDERED: PROPOFOL 200 MG/20 ML VIAL ONE (09:02)
[2022-03-10] MEDS ORDERED: Ondansetron PF 4 MG/2 ML Vial ONE (09:02)
[2022-03-10] MEDS ORDERED: Dexamethasone 20 MG/5 ML VIAL ONE (09:02)
[2022-03-10] MEDS ORDERED: Rocuronium Bromide 10 MG/ML (10ML VIAL) ONE (09:02)
== END 2022-03-10 11:49 | disposition home or self-care (01) ==
LOC: SDC 06:48
PROVIDERS: ATTEND Internal Medicine Gastroenterology
PROC: 0DB58ZX Excision of Esophagus, Via Natural or Artificial Opening Endoscopic, Diagnostic (ICD-10-PCS; principal; 2022-03-10)
PROC: 0D718ZZ Dilation of Upper Esophagus, Via Natural or Artificial Opening Endoscopic (ICD-10-PCS; principal; 2022-03-10)
PROC: 0DBP8ZX Excision of Rectum, Via Natural or Artificial Opening Endoscopic, Diagnostic (ICD-10-PCS; principal; 2022-03-10)
PROC: 0DBN8ZZ Excision of Sigmoid Colon, Via Natural or Artificial Opening Endoscopic (ICD-10-PCS; principal; 2022-03-10)
DX: Z12.11 Encounter for screening for malignant neoplasm of colon (principal); K62.1 Rectal polyp; K22.70 Barrett's esophagus without dysplasia; K63.5 Polyp of colon; K57.30 Diverticulosis of large intestine without perforation or abscess without bleeding; K64.8 Other hemorrhoids; K22.2 Esophageal obstruction; K21.00 Gastro-esophageal reflux disease with esophagitis, without bleeding; K44.9 Diaphragmatic hernia without obstruction or gangrene; I10 Essential (primary) hypertension; G25.81 Restless legs syndrome; G47.30 Sleep apnea, unspecified; Z86.010 Personal history of colon polyps; Z79.899 Other long term (current) drug therapy; Z91.041 Radiographic dye allergy status
CPT/HCPCS: 74330; 88305; 88312; 88313; J1100; J2370; J2405; J2704

== ENCOUNTER 2023-01-20 00:27 | Observation (INO) | payer SELFPAY ==
[2023-01-20] MEDS ORDERED: LORazepam 2 MG/ML SYR.(CARPUJECT) ONE (00:49)
[2023-01-20 04:06] LABS: Troponin I Less than 0.010 ng/mL (< 0.028)
[2023-01-20] MEDS ORDERED: Nitroglycerin 0.4 MG TAB (25 Tab Bottle) SL PRN (04:35)
[2023-01-20] MEDS ORDERED: Ondansetron ODT 4 MG TAB PO PRN (04:36)
[2023-01-20] MEDS ORDERED: Calcium Carbonate 500 MG ChewTAB PO PRN ×2 (04:36→06:00)
[2023-01-20] MEDS ORDERED: Acetaminophen 325 MG TAB PO PRN (04:36)
[2023-01-20] MEDS ORDERED: Acetaminophen 650 MG/20.3 ML UDCUP PO PRN (04:50)
[2023-01-20 05:15] LABS: #Basophils 0.1 thou/uL (0.0-0.2); #Eosinphils 0.1 thou/uL (0.0-0.7); #Monocytes 0.3 thou/uL (0.11-0.59); #Neutrophils 4.1 thou/uL (1.40-6.50); %Basophils 1.4 % (0.0-1.0); %Eosinophils 2.4 % (0.0-10.0); %Lymphocytes 20.5 % (21.0-51.0); %Monocytes 5.7 % (0.0-10.0); %Neutrophils 69.3 % (42.0-75.0); Hematocrit 38.4 % (42.0-52.0); Hemoglobin 13.1 g/dL (14.0-18.0); Mean Corpuscular HGB CONC 34.1 g/dL (32.0-36.0); Mean Corpuscular Hemoglobin 29.4 pg (27.0-31.0); Mean Corpuscular Volume 86.1 fl (78.0-98.0); Platelet Count 393 10x3/uL (130-400); RBC Distribution Width 13.9 % (11.5-14.5); Red Blood Cell (RBC) Count 4.46 mill/uL (4.70-6.10); White Blood Cell (WBC) Count 5.8 10x3/uL (4.8-10.8)
[2023-01-20] MEDS ORDERED: Senokot 8.6 MG TAB PO PRN (06:00)
[2023-01-20] MEDS ORDERED: Loperamide HCl 2 MG CAP PO PRN ×2 (06:00)
[2023-01-20 06:15] VITALS: BMI 35.4
[2023-01-20 06:45] LABS: Anion Gap 16 mmol/L (10-20); BUN (Urea Nitrogen) 18 mg/dL (8.4-25.7); Calc. Creatinine Clearance 118 mL/min (70-130); Calcium 9.1 mg/dL (7.8-10.44); Carbon Dioxide 21 mmol/L (22-29); Chloride 107 mmol/L (98-107); Estimated GFR 77; Glucose 89 mg/dL (70-105); Potassium 3.6 mmol/L (3.5-5.1); Sodium 140 mmol/L (136-145)
[2023-01-20 06:58] LABS: Troponin I 0.013 ng/mL (< 0.028)
[2023-01-20 08:20] LABS: Troponin I Less than 0.010 ng/mL (< 0.028)
[2023-01-20] MEDS ORDERED: Aspirin Chewable 81 MG TAB PO SCH (09:00)
[2023-01-20] MEDS ORDERED: Famotidine 20 MG TAB PO SCH (09:00)
[2023-01-20] MEDS ORDERED: TICAGRELOR 90 MG TABLET PO SCH (09:00)
[2023-01-20 13:28] VITALS: BP 140/91; TEMP 98.2
[2023-01-20] MEDS ORDERED: ALPRAZolam 1 MG TAB PO SCH (15:00)
[2023-01-20] MEDS ORDERED: Losartan 25 MG TAB PO SCH (21:00)
[2023-01-20] MEDS ORDERED: Fenofibrate Nanocrystallized 145 MG TAB PO SCH (21:00)
== END 2023-01-20 15:35 | disposition home or self-care (01) ==
LOC: ERS 00:27 → 2SW 01:27
PROVIDERS: ADMIT Student in an Organized Health Care Education/Training Program; ATTEND Hospitalist
DX: R07.9 Chest pain, unspecified (principal); I25.10 Atherosclerotic heart disease of native coronary artery without angina pectoris; E78.5 Hyperlipidemia, unspecified; I10 Essential (primary) hypertension; K21.9 Gastro-esophageal reflux disease without esophagitis; Z79.899 Other long term (current) drug therapy; Z95.5 Presence of coronary angioplasty implant and graft; Z91.041 Radiographic dye allergy status
CPT/HCPCS: 36415; 78452; 80048; 84484; 85025; 93005; 93017; 96372; 96374; A9500; G0378; J1650; J2060